=== PATIENT | male | born 1950 | race Caucasian/White ===

== ENCOUNTER 2018-09-15 07:24 | Emergency (ER) | payer MEDICARE ==
[2018-09-15] MEDS ORDERED: Dexamethasone Sodium Phos 4 mg/mL Vial IM STA (08:09)
[2018-09-15] MEDS ORDERED: Dexamethasone Sodium Phos 4 mg/mL Vial ONE (08:13)
--- NOTE | 2018-09-15 08:15 | ED Physician Chart ---
ED Chief Complaint/HPI - Patient Information Date Seen:: 09/15/18 Time Seen:: 08:00 Chief Complaint:: urticaria History of Present Illness:: Yesterday patient developed urticaria in the axilla, buttocks and both thighs. He denies throat swelling or difficulty breathing. Patient has had urticaria intermittently for last 15 years, last episode was about 2 years ago. In the past patient has received injections of Decadron which have made the urticaria subside Allergies:: Allergies Allergy/AdvReac Type Severity Reaction Status Date / Time No Known Allergies Allergy Verified 09/15/18 07:40 Vitals:: Vital Signs - 8 hr 09/15/18 07:41 Temp 98.4 F HR 70 RR 17 BP 130/85 O2 Sat % 97 Historian:: Patient Review:: Nurse's Note Reviewed ED Review of Systems - Review of Systems General/Constitutional: No fever, No chills Skin: Rash Head: No headache Eyes: No loss of vision ENT: No earache Neck: No neck pain, No swelling Cardio Vascular: No chest pain, No palpitations Pulmonary: No SOB GI: No nausea, No vomiting, No diarrhea G/U: No dysuria Musculoskeletal: No bone or joint pain Endocrine: No polyuria, No polydipsia Psychiatric: No prior psych history Hematopoietic: No bruising Allergic/Immuno: Urticaria Neurological: No syncope, No focal symptoms, No weakness ED Past Medical History - Past Medical History Past Medical History: DM Family History: None Social History: Non Smoker, No Alcohol Surgical History: other (left hip replacement; meniscus right knee) Psychiatricy History: None Medication: Reviewed ED Physical Exam - Physical Examination General/Constitutional: Awake, Well-developed, well-nourished, Alert, No distress, GCS 15, Non-toxic appearing, Ambulatory Head: Atraumatic Eyes: Lids, conjuctiva normal, PERRL, EOMI Other Skin comments:: Urticaria both axillae and anterior and posterior both thighs ENMT: External ears, nose nl, Nasal exam nl Other ENMT comments:: Full upper and lower dentures Neck: Nontender, Full ROM w/o pain, No JVD, No nuchal rigidity, No bruit, No mass, No stridor Respiratory: Nl effort/Exclusion, Clear to Auscultation, No Wheeze/Rhonchi/Rales Cardio Vascular: RRR, No murmur, gallop, rubs, NL S1 S2 GI: No tenderness/rebounding/guarding, No organomegaly, No hernia, Normal BS's, Nondistended, No mass/bruits, No McBurney tenderness : No CVA tenderness Extremities: No tenderness or effusion, Full ROM, normal strength in all extremities, No edema, Normal digits & nails Neuro/Psych: Alert/oriented, DTR's symmetric, Normal sensory exam, Normal motor strength, Judgement/insight normal, Mood normal, Normal gait, No focal deficits Misc: Normal back, No paraspinal tenderness ED Septic Shock - . Is Septic Shock (SBP<90, OR Lactate>4 mmol\L) present?: No - <6hrs of presentation: Vital Signs: Vital Signs - 8 hr 09/15/18 07:41 Temp 98.4 F HR 70 RR 17 BP 130/85 O2 Sat % 97 ED Reassessment (Disposition) - Reassessment Reassessment Condition:: Unchanged - Diagnosis Diagnosis:: Urticaria - Aftercare/Follow up Instructions Aftercare/Follow-Up Instructions:: Refer to Discharge Instructions - Patient Disposition Discharge/Transfer:: Home Condition at Disposition:: Stable, Unchanged
== END 2018-09-15 08:45 | disposition home or self-care (01) ==
LOC: ER 07:24
DX: L50.9 Urticaria, unspecified (principal); E11.9 Type 2 diabetes mellitus without complications
CPT/HCPCS: 99283; 96372; J1100; Z7502

== ENCOUNTER 2018-09-18 10:52 | Emergency (ER) | payer MEDICARE ==
--- NOTE | 2018-09-18 11:42 | ED Physician Chart ---
ED Chief Complaint/HPI - Patient Information Date Seen:: 09/18/18 Time Seen:: 11:05 Chief Complaint:: 15 year h/o recurrent rash History of Present Illness:: 15 year h/o recurrent rash Patient uses TIDE detergent and fabric softener with fragrance. He uses DOVE soap. Allergies:: Allergies Allergy/AdvReac Type Severity Reaction Status Date / Time No Known Allergies Allergy Verified 09/18/18 11:04 Vitals:: Vital Signs - 8 hr 09/18/18 11:05 Temp 97.6 F HR 70 RR 18 BP 129/64 O2 Sat % 100 Historian:: Patient Review:: Nurse's Note Reviewed ED Review of Systems - Review of Systems General/Constitutional: No fever, No chills, No weight loss, No weakness, No diaphoresis, No edema, No loss of appetite Skin: No skin lesions, Rash, No bruising Head: No headache, No light-headedness Eyes: No loss of vision, No pain, No diplopia ENT: No earache, No nasal drainage, No sore throat, No tinnitus Neck: No neck pain, No swelling, No thyromegaly, No stiffness, No mass noted Cardio Vascular: No chest pain, No palpitations, No PND, No orthopnea, No edema Pulmonary: No SOB, No cough, No sputum, No wheezing GI: No nausea, No vomiting, No diarrhea, No pain, No melena, No hematochezia, No constipation, No hematemesis G/U: No dysuria, No frequency, No hematuria Musculoskeletal: No bone or joint pain, No back pain, No muscle pain Endocrine: No polyuria, No polydipsia Psychiatric: No prior psych history, No depression, No anxiety, No suicidal ideation Hematopoietic: No bruising, No lymphadenopathy Allergic/Immuno: No urticaria, No angioedema Neurological: No syncope, No focal symptoms, No weakness, No paresthesia, No headache, No seizure, No dizziness, No confusion, No vertigo ED Past Medical History - Past Medical History Obtainable: Yes Past Medical History: Other (15 year h/o recurrent rash) Family Medical History - Family Member Mother History Unknown: Yes Ethnicity: Non- Living Status: ED Physical Exam - Physical Examination General/Constitutional: Awake, Well-developed, well-nourished, Alert, No distress, GCS 15, Non-toxic appearing, Ambulatory Head: Atraumatic Eyes: Lids, conjuctiva normal, PERRL, EOMI Skin: Well hydrated Other Skin comments:: erythematous macular papular rash on BUE and buttocks and back area consistent with TIDE dermatitis. ENMT: Oropharynx nl Other ENMT comments:: patent airway Neck: Nontender, No nuchal rigidity Respiratory: Nl effort/Exclusion, Clear to Auscultation, No Wheeze/Rhonchi/Rales Cardio Vascular: RRR, No murmur, gallop, rubs, NL S1 S2 GI: No tenderness/rebounding/guarding, No organomegaly, No hernia, Normal BS's, Nondistended, No mass/bruits, No McBurney tenderness : No CVA tenderness Extremities: No tenderness or effusion, Full ROM, normal strength in all extremities, No edema, Normal digits & nails Other Extremities comments:: see discussion under skin. Neuro/Psych: Alert/oriented, Normal sensory exam, Normal motor strength, Judgement/insight normal, Mood normal, Normal gait, No focal deficits Other Misc comments:: see discussion re skin. ED Assessment - Assessment General Assessment: tolerated injection well. Some decrease in intensity of the redness of the rash on the back and less raised as well. ED Septic Shock - . Is Septic Shock (SBP<90, OR Lactate>4 mmol\L) present?: No - <6hrs of presentation: Vital Signs: Vital Signs - 8 hr 09/18/18 11:05 Temp 97.6 F HR 70 RR 18 BP 129/64 O2 Sat % 100 ED Reassessment (Disposition) - Reassessment Reassessment Condition:: Improved - Diagnosis Diagnosis:: TIDE contact dermatitis exacerbated by fabric softener. - Aftercare/Follow up Instructions Aftercare/Follow-Up Instructions:: Refer to Discharge Instructions Notes:: STOP TIDE. USE ALL FREE DETERGENT. STOP FABRIC SOFTENER. WASH THROUGH CLOTHES, SHEETS, TOWELS AND PILLOW CASES WITH COLD WATER 2 TIMES TO ELIMINATE ALLERGENS. FOLLOW UP WITH PCP NEEDED. Medication Prescribed:: Zyrtec 10 mg po qhs # 10 Medrol dose pack (4 mg) Ranitidine 150 mg po bid # 20 Hydrocortisone cream 2.5 % apply bid prn Benadryl 25 mg po every 6 hours as needed. # 40 - Patient Disposition Discharge/Transfer:: Home Condition at Disposition:: Stable, Improved
== END 2018-09-18 11:40 | disposition home or self-care (01) ==
LOC: ER 10:52
DX: L24.0 Irritant contact dermatitis due to detergents (principal)
CPT/HCPCS: 99284; 96374; 96375; J3490; J2930; Z7502

== ENCOUNTER 2018-09-27 14:03 | Emergency (ER) | payer MEDICARE ==
--- NOTE | 2018-09-27 16:20 | ED Physician Chart ---
ED Chief Complaint/HPI - Patient Information Date Seen:: 09/27/18 Time Seen:: 15:00 Chief Complaint:: Rash History of Present Illness:: onset x 3 days of itching rash; pt denies trauma, LOC, ALOC, AMS, H/As, S/T, E/ As, neck pain, C/P, cough, SOB, Abd. pain, A/N/V/D/C, pain, fever, chills, or urinary s/s; pt's last tetanus shot: < 5 years; UTD Allergies:: Allergies Allergy/AdvReac Type Severity Reaction Status Date / Time No Known Allergies Allergy Verified 09/18/18 11:04 Vitals:: Vital Signs - 8 hr 09/27/18 09/27/18 15:06 15:13 Temp 98.2 F 98.2 F HR 93 93 RR 17 100 BP 121/76 121/76 O2 Sat % 95 Historian:: Patient Review:: Nurse's Note Reviewed, Old Chart Reviewed ED Review of Systems - Review of Systems General/Constitutional: No fever, No chills, No weight loss, No weakness, No diaphoresis, No edema, No loss of appetite Skin: Skin lesions, Rash, No bruising Head: No headache, No light-headedness Eyes: No loss of vision, No pain, No diplopia ENT: No earache, No nasal drainage, No sore throat, No tinnitus Neck: No neck pain, No swelling, No thyromegaly, No stiffness, No mass noted Cardio Vascular: No chest pain, No palpitations, No PND, No orthopnea, No edema Pulmonary: No SOB, No cough, No sputum, No wheezing GI: No nausea, No vomiting, No diarrhea, No pain, No melena, No hematochezia, No constipation, No hematemesis G/U: No dysuria, No frequency, No hematuria, No nacturia Musculoskeletal: No bone or joint pain, No back pain, No muscle pain Endocrine: No polyuria, No polydipsia Psychiatric: No prior psych history, No depression, No anxiety, No suicidal ideation, No homicidal ideation, No auditory hallucination, No visual hallucination Hematopoietic: No bruising, No lymphadenopathy Allergic/Immuno: No urticaria, No angioedema Neurological: No syncope, No focal symptoms, No weakness, No paresthesia, No headache, No seizure, No dizziness, No confusion, No vertigo ED Past Medical History - Past Medical History Obtainable: Yes Past Medical History: HTN, Other (Urticaria) Family History: HTN Social History: Non Smoker, No Alcohol, No Drug Use, Single Surgical History: None Psychiatricy History: None Medication: Reviewed Family Medical History - Family Member Mother History Unknown: Yes Ethnicity: Non- Living Status: ED Physical Exam - Physical Examination General/Constitutional: Awake, Well-developed, well-nourished, Alert, No distress, GCS 15, Non-toxic appearing, Ambulatory Head: Atraumatic Eyes: Lids, conjuctiva normal, PERRL, EOMI Skin: Nl inspection, No skin lesions, No ecchymosis, Well hydrated, No lymphadenopathy Other Skin comments:: + Urticaria lesions especially at chest and Abd. regions; no cellulitis; no FBs ; good motor and sensory functions; good NV functions ENMT: External ears, nose nl, TM canals nl, Nasal exam nl, Lips, teeth, gums nl , Oropharynx nl, Tonsils nl Neck: Nontender, Full ROM w/o pain, No JVD, No nuchal rigidity, No bruit, No mass, No stridor Other Neck comments:: supple; no meningeal signs; no cervical tenderness; no bruits Respiratory: Nl effort/Exclusion, Clear to Auscultation, No Wheeze/Rhonchi/Rales Cardio Vascular: RRR, No murmur, gallop, rubs, NL S1 S2, Carotid/Femoral/Distal pulses equal bilaterally GI: No tenderness/rebounding/guarding, No organomegaly, No hernia, Normal BS's, Nondistended, No mass/bruits, No McBurney tenderness, Rectum exam nl Other GI comments:: no pulsatile masses; good BS : No CVA tenderness Extremities: No tenderness or effusion, Full ROM, normal strength in all extremities, No edema, Normal digits & nails Neuro/Psych: Alert/oriented, DTR's symmetric, Normal sensory exam, Normal motor strength, Judgement/insight normal, Mood normal, Normal gait, No focal deficits Other Neuro/Psych comments:: no focal signs Misc: Normal back, No paraspinal tenderness ED Septic Shock - . Is Septic Shock (SBP<90, OR Lactate>4 mmol\L) present?: No - <6hrs of presentation: Vital Signs: Vital Signs - 8 hr 09/27/18 09/27/18 15:06 15:13 Temp 98.2 F 98.2 F HR 93 93 RR 17 100 BP 121/76 121/76 O2 Sat % 95 ED Reassessment (Disposition) - Reassessment Reassessment:: pt is asymptomatic upon discharge Reassessment Condition:: Improved - Diagnosis Diagnosis:: Dx: Rash; Itching Rash; Urticaria; Allergic Reaction - Aftercare/Follow up Instructions Aftercare/Follow-Up Instructions:: Counseled pt regarding lab results/diagnosis & need follow up, Refer to Discharge Instructions, Counseled pt & family regarding lab results/diagnosis & need follow up Medication Prescribed:: Rx: Benadryl 25mg po qid prn itching rash; Medrol Dose Pack; take all medications as prescribed; Skin Care Instructions; Rash Care Instructions - Patient Disposition Discharge/Transfer:: Home Condition at Disposition:: Stable, Improved (RTER prn if existing s/s reoccur and/or get worse and/or any other new s/s occur; ACIs given for all above Dx; Skin/Rash Care Instructions; Refer to Vamp Creaser/Spot Remover/Geotechnical Operating Engineer CODY; F/ U with PMD in one day or prn; RTER prn if concerned)
== END 2018-09-27 15:30 | disposition home or self-care (01) ==
LOC: ER 14:03
DX: T78.40XA Allergy, unspecified, initial encounter (principal); L50.0 Allergic urticaria; I10 Essential (primary) hypertension; X58.XXXA Exposure to other specified factors, initial encounter
CPT/HCPCS: J1030; Z7502

== ENCOUNTER 2018-09-30 13:05 | Emergency (ER) | payer MEDICARE ==
--- NOTE | 2018-09-30 13:53 | ED Physician Chart ---
ED Chief Complaint/HPI - Patient Information Date Seen:: 09/30/18 Time Seen:: 13:05 Chief Complaint:: rash History of Present Illness:: rash has been coming and going for years. none of his doctors know what causes it. patient has eliminated TIDE and all fragrance. Allergies:: Allergies Allergy/AdvReac Type Severity Reaction Status Date / Time No Known Allergies Allergy Verified 09/30/18 13:14 Vitals:: Vital Signs - 8 hr 09/30/18 13:05 Temp 97.7 F HR 91 RR 16 BP 131/70 O2 Sat % 98 Historian:: Patient Review:: Nurse's Note Reviewed ED Review of Systems - Review of Systems General/Constitutional: No fever, No chills, No weight loss, No weakness, No diaphoresis, No edema, No loss of appetite Skin: No skin lesions, Rash, No bruising Head: No headache, No light-headedness Eyes: No loss of vision, No pain, No diplopia ENT: No earache, No nasal drainage, No sore throat, No tinnitus Neck: No neck pain, No swelling, No thyromegaly, No stiffness, No mass noted Cardio Vascular: No chest pain, No palpitations, No PND, No orthopnea, No edema Pulmonary: No SOB, No cough, No sputum, No wheezing GI: No nausea, No vomiting, No diarrhea, No pain, No melena, No hematochezia, No constipation, No hematemesis G/U: No dysuria, No frequency, No hematuria Musculoskeletal: No bone or joint pain, No back pain, No muscle pain Endocrine: No polyuria, No polydipsia Psychiatric: No prior psych history, No depression, No anxiety, No suicidal ideation Hematopoietic: No bruising, No lymphadenopathy Allergic/Immuno: No urticaria, No angioedema Neurological: No syncope, No focal symptoms, No weakness, No paresthesia, No headache, No seizure, No dizziness, No confusion, No vertigo ED Past Medical History - Past Medical History Obtainable: Yes Past Medical History: Other (recurrent rash of unknown etiology; allergy testing has been negative) Family Medical History - Family Member Mother History Unknown: Yes Ethnicity: Non- Living Status: ED Physical Exam - Physical Examination General/Constitutional: Awake, Well-developed, well-nourished, Alert, No distress, GCS 15, Non-toxic appearing, Ambulatory Head: Atraumatic Eyes: Lids, conjuctiva normal, PERRL, EOMI Other Skin comments:: maculopapular rash on back on around neck area. ENMT: External ears, nose nl Neck: Nontender, Full ROM w/o pain, No JVD, No nuchal rigidity, No bruit, No mass, No stridor Respiratory: Nl effort/Exclusion, Clear to Auscultation, No Wheeze/Rhonchi/Rales Cardio Vascular: RRR, No murmur, gallop, rubs, NL S1 S2 GI: No tenderness/rebounding/guarding, No organomegaly, No hernia, Normal BS's, Nondistended, No mass/bruits, No McBurney tenderness : No CVA tenderness Extremities: No tenderness or effusion, Full ROM, normal strength in all extremities, No edema, Normal digits & nails Neuro/Psych: Alert/oriented, Normal sensory exam, Normal motor strength, Judgement/insight normal, Mood normal, Normal gait, No focal deficits Other Misc comments:: maculopapular rash on back on around neck area. ED Assessment - Assessment General Assessment: feels less itchy after receiving the treatment here. his daughter will drive him home. ED Septic Shock - . Is Septic Shock (SBP<90, OR Lactate>4 mmol\L) present?: No - <6hrs of presentation: Vital Signs: Vital Signs - 8 hr 09/30/18 13:05 Temp 97.7 F HR 91 RR 16 BP 131/70 O2 Sat % 98 ED Reassessment (Disposition) - Reassessment Reassessment Condition:: Improved - Diagnosis Diagnosis:: Contact dermatitis - Aftercare/Follow up Instructions Aftercare/Follow-Up Instructions:: Refer to Discharge Instructions Notes:: follow up with air brakes inspector no seeds and nuts no dairy products no gluten Medication Prescribed:: Diflucan 150 mg 1 po q day # 3 Lotrisone cream apply bid # 1 with 1 refill Benadryl 25 mg 1 po q 6 hours prn # 40 Medrol dose pack 4 mg take as directed Ranitidine 150 m po bid # 20 Zyrtec 10 m po q day # 10 - Patient Disposition Discharge/Transfer:: Home Condition at Disposition:: Stable, Improved
[2018-09-30 14:32] VITALS: BP 120/76
== END 2018-09-30 14:47 | disposition home or self-care (01) ==
LOC: ER 13:05
DX: L25.9 Unspecified contact dermatitis, unspecified cause (principal)
CPT/HCPCS: 99283; 96374; 96375; J2930; J1200; Z7502

== ENCOUNTER 2018-11-20 15:00 | Emergency (ER) | payer MEDICARE ==
--- NOTE | 2018-11-20 16:09 | ED Physician Chart ---
ED Chief Complaint/HPI - Patient Information Date Seen:: 11/20/18 Time Seen:: 15:22 Chief Complaint:: chronic rash, wants steroid shot History of Present Illness:: chronic rash, wants steroid shot has a new dog at home. Allergies:: Allergies Allergy/AdvReac Type Severity Reaction Status Date / Time No Known Allergies Allergy Verified 11/20/18 15:09 Vitals:: Vital Signs - 8 hr 11/20/18 11/20/18 15:22 15:43 Temp 98.1 F 98.1 F HR 83 83 RR 16 18 BP 125/70 125/70 O2 Sat % 98 98 Historian:: Patient Review:: Nurse's Note Reviewed ED Review of Systems - Review of Systems General/Constitutional: No fever, No chills, No weight loss, No weakness, No diaphoresis, No edema, No loss of appetite Skin: Rash, No bruising Head: No headache, No light-headedness Eyes: No loss of vision, No pain, No diplopia ENT: No earache, No nasal drainage, No sore throat, No tinnitus Neck: No neck pain, No swelling, No thyromegaly, No stiffness, No mass noted Cardio Vascular: No chest pain, No palpitations, No PND, No orthopnea, No edema Pulmonary: No SOB, No cough, No sputum, No wheezing GI: No nausea, No vomiting, No diarrhea, No pain, No melena, No hematochezia, No constipation, No hematemesis G/U: No dysuria, No frequency, No hematuria Musculoskeletal: No bone or joint pain, No back pain, No muscle pain Endocrine: No polyuria, No polydipsia Psychiatric: No prior psych history, No depression, No anxiety, No suicidal ideation Hematopoietic: No bruising, No lymphadenopathy Allergic/Immuno: No urticaria, No angioedema Neurological: No syncope, No focal symptoms, No weakness, No paresthesia, No headache, No seizure, No dizziness, No confusion, No vertigo ED Past Medical History - Past Medical History Obtainable: Yes Past Medical History: Other (chronic rash, unknown cause (has had it for years)) Family Medical History - Family Member Mother History Unknown: Yes Ethnicity: Non- Living Status: ED Physical Exam - Physical Examination General/Constitutional: Awake, Well-developed, well-nourished, Alert, No distress, GCS 15, Non-toxic appearing, Ambulatory Head: Atraumatic Eyes: Lids, conjuctiva normal, PERRL, EOMI Skin: No ecchymosis, Well hydrated, No lymphadenopathy Other Skin comments:: Upper back rash appears to be ringworm (he has a new dog) other areas of rash appear like his classic macular papular rash. ENMT: External ears, nose nl Neck: Nontender, Full ROM w/o pain, No JVD, No nuchal rigidity, No bruit, No mass, No stridor Respiratory: Nl effort/Exclusion, Clear to Auscultation, No Wheeze/Rhonchi/Rales Cardio Vascular: RRR, No murmur, gallop, rubs, NL S1 S2 GI: No tenderness/rebounding/guarding, No organomegaly, No hernia, Normal BS's, Nondistended, No mass/bruits, No McBurney tenderness : No CVA tenderness Extremities: No tenderness or effusion, Full ROM, normal strength in all extremities, No edema, Normal digits & nails Neuro/Psych: Alert/oriented, DTR's symmetric, Normal sensory exam, Normal motor strength, Judgement/insight normal, Mood normal, Normal gait, No focal deficits Misc: Normal back, No paraspinal tenderness ED Assessment - Assessment General Assessment: feels better after steroid injection. wants to go home. ED Septic Shock - . Is Septic Shock (SBP<90, OR Lactate>4 mmol\L) present?: No - <6hrs of presentation: Vital Signs: Vital Signs - 8 hr 11/20/18 11/20/18 15:22 15:43 Temp 98.1 F 98.1 F HR 83 83 RR 16 18 BP 125/70 125/70 O2 Sat % 98 98 ED Reassessment (Disposition) - Reassessment Reassessment Condition:: Improved - Diagnosis Diagnosis:: Ringworm Contact dermatitis - Aftercare/Follow up Instructions Aftercare/Follow-Up Instructions:: Refer to Discharge Instructions Notes:: follow up with primary Medication Prescribed:: Diflucan 150 mg po q day #3 Lotrisone cream Prednisone 10 m, 3, 2, 1(monitor blood sugars at home) - Patient Disposition Discharge/Transfer:: Home Condition at Disposition:: Stable, Improved
== END 2018-11-20 16:00 | disposition home or self-care (01) ==
LOC: ER 15:00
DX: B35.9 Dermatophytosis, unspecified (principal); L25.9 Unspecified contact dermatitis, unspecified cause
CPT/HCPCS: 99283; 96372; J2930; Z7502

== ENCOUNTER 2019-02-06 19:53 | Emergency (ER) | payer MEDICARE, OTHER ==
--- NOTE | 2019-02-06 20:46 | ED Physician Chart ---
ED Chief Complaint/HPI - Patient Information Date Seen:: 02/06/19 Time Seen:: 20:41 Chief Complaint:: rash History of Present Illness:: 68 yr old male with rash elbows comes and goes and usually get steroid shot and then rash and itching go away and then he goes home Allergies:: Allergies Allergy/AdvReac Type Severity Reaction Status Date / Time No Known Allergies Allergy Verified 02/06/19 20:16 Vitals:: Vital Signs - 8 hr 02/06/19 20:10 Temp 98.9 F HR 81 RR 18 BP 150/64 O2 Sat % 100 ED Review of Systems - Review of Systems General/Constitutional: No fever, No chills, No weight loss, No weakness, No diaphoresis, No edema, No loss of appetite Skin: Rash Head: No headache, No light-headedness Eyes: No loss of vision, No pain, No diplopia ENT: No earache, No nasal drainage, No sore throat, No tinnitus Neck: No neck pain, No swelling, No thyromegaly, No stiffness, No mass noted Cardio Vascular: No chest pain, No palpitations, No PND, No orthopnea, No edema Pulmonary: No SOB, No cough, No sputum, No wheezing GI: No nausea, No vomiting, No diarrhea, No pain, No melena, No hematochezia, No constipation, No hematemesis G/U: No dysuria, No frequency, No hematuria Musculoskeletal: No bone or joint pain, No back pain, No muscle pain Endocrine: No polyuria, No polydipsia Psychiatric: No prior psych history, No depression, No anxiety, No suicidal ideation Hematopoietic: No bruising, No lymphadenopathy Allergic/Immuno: No urticaria, No angioedema Neurological: No syncope, No focal symptoms, No weakness, No paresthesia, No headache, No seizure, No dizziness, No confusion, No vertigo ED Past Medical History - Past Medical History Past Medical History: Other (hay fever ) Family Medical History - Family Member Mother History Unknown: Yes Ethnicity: Non- Living Status: ED Physical Exam - Physical Examination General/Constitutional: Awake, Well-developed, well-nourished, Alert, No distress, GCS 15, Non-toxic appearing, Ambulatory Head: Atraumatic Eyes: Lids, conjuctiva normal, PERRL, EOMI Skin: No ecchymosis, Well hydrated, No lymphadenopathy Other Skin comments:: rash elbows ENMT: External ears, nose nl, Nasal exam nl, Lips, teeth, gums nl Neck: Nontender, Full ROM w/o pain, No JVD, No nuchal rigidity, No bruit, No mass, No stridor Respiratory: Nl effort/Exclusion, Clear to Auscultation, No Wheeze/Rhonchi/Rales Cardio Vascular: RRR, No murmur, gallop, rubs, NL S1 S2 GI: No tenderness/rebounding/guarding, No organomegaly, No hernia, Normal BS's, Nondistended, No mass/bruits, No McBurney tenderness : No CVA tenderness Extremities: No tenderness or effusion, Full ROM, normal strength in all extremities, No edema, Normal digits & nails Neuro/Psych: Alert/oriented, DTR's symmetric, Normal sensory exam, Normal motor strength, Judgement/insight normal, Mood normal, Normal gait, No focal deficits Misc: Normal back, No paraspinal tenderness ED Assessment - Assessment General Assessment: rash dermatitis ED Septic Shock - . Is Septic Shock (SBP<90, OR Lactate>4 mmol\L) present?: No - <6hrs of presentation: Vital Signs: Vital Signs - 8 hr 02/06/19 20:10 Temp 98.9 F HR 81 RR 18 BP 150/64 O2 Sat % 100 ED Reassessment (Disposition) - Reassessment Reassessment:: rash dermatitis Reassessment Condition:: Improved - Diagnosis Diagnosis:: same - Aftercare/Follow up Instructions Aftercare/Follow-Up Instructions:: Counseled pt regarding lab results/diagnosis & need follow up - Patient Disposition Discharge/Transfer:: Home Condition at Disposition:: Stable
== END 2019-02-06 21:15 | disposition home or self-care (01) ==
LOC: ER 19:53
DX: L30.9 Dermatitis, unspecified (principal); R21 Rash and other nonspecific skin eruption
CPT/HCPCS: 99283; 96372; J2930; Z7502

== ENCOUNTER 2019-04-27 14:30 | Emergency (ER) | payer MEDICARE, OTHER ==
[2019-04-27] MEDS ORDERED: Dexamethasone Sodium Phos 4 mg/mL Vial IM STA (14:59)
[2019-04-27] MEDS ORDERED: Dexamethasone Sodium Phos 4 mg/mL Vial ONE (15:04)
--- NOTE | 2019-04-27 15:05 | ED Physician Chart ---
ED Chief Complaint/HPI - Patient Information Date Seen:: 04/27/19 Time Seen:: 14:55 Chief Complaint:: pruritic rash History of Present Illness:: Patient developed diffuse pruritic rash last night; unable to sleep because of the itching. No throat swelling or difficulty breathing. Patient has a history of chronic urticaria. Patient states the urticaria always gets better after steroid injection. Allergies:: Allergies Allergy/AdvReac Type Severity Reaction Status Date / Time No Known Allergies Allergy Verified 04/27/19 14:42 Vitals:: Vital Signs - 8 hr 04/27/19 14:44 HR 104 RR 18 BP 129/65 O2 Sat % 97 Historian:: Patient ED Review of Systems - Review of Systems General/Constitutional: No fever, No chills Skin: Rash, Other (pruritic rash) Head: No headache Eyes: No loss of vision ENT: No earache Neck: No neck pain, No swelling Cardio Vascular: No chest pain, No palpitations Pulmonary: No SOB GI: No nausea, No vomiting, No diarrhea G/U: No dysuria Musculoskeletal: No bone or joint pain Endocrine: No polyuria Psychiatric: No prior psych history Hematopoietic: No bruising, No lymphadenopathy Allergic/Immuno: No urticaria Neurological: No syncope ED Past Medical History - Past Medical History Past Medical History: DM, Other (chronic urticaria) Family History: None Social History: Non Smoker, No Alcohol Surgical History: other (left hip replacement surgery) Psychiatricy History: None Medication: Reviewed Family Medical History - Family Member Mother History Unknown: Yes Ethnicity: Non- Living Status: ED Physical Exam - Physical Examination General/Constitutional: Awake Head: Atraumatic Eyes: Lids, conjuctiva normal, PERRL Other Skin comments:: Urticaria noted on upper extremities ENMT: External ears, nose nl, Nasal exam nl Other ENMT comments:: upper and lower dentures Neck: No nuchal rigidity Respiratory: Nl effort/Exclusion, Clear to Auscultation, No Wheeze/Rhonchi/Rales Cardio Vascular: RRR, No murmur, gallop, rubs GI: No tenderness/rebounding/guarding : No CVA tenderness Extremities: Normal digits & nails Neuro/Psych: No focal deficits Misc: Normal back ED Assessment - Assessment General Assessment: will give patient decadron 8 mg intramuscularly. ED Septic Shock - . Is Septic Shock (SBP<90, OR Lactate>4 mmol\L) present?: No - <6hrs of presentation: Vital Signs: Vital Signs - 8 hr 04/27/19 14:44 HR 104 RR 18 BP 129/65 O2 Sat % 97 ED Reassessment (Disposition) - Reassessment Reassessment Condition:: Unchanged - Diagnosis Diagnosis:: acute urticarea; history of diabetes; history of chronic urticaria - Aftercare/Follow up Instructions Aftercare/Follow-Up Instructions:: Refer to Discharge Instructions - Patient Disposition Discharge/Transfer:: Home Condition at Disposition:: Stable, Unchanged
== END 2019-04-27 15:15 | disposition home or self-care (01) ==
LOC: ER 14:30
DX: L50.9 Urticaria, unspecified (principal); E11.9 Type 2 diabetes mellitus without complications
CPT/HCPCS: 99283; 96372; J1100; Z7502

== ENCOUNTER 2019-04-30 17:42 | Emergency (ER) | payer MEDICARE, OTHER ==
--- NOTE | 2019-04-30 18:21 | ED Physician Chart ---
ED Chief Complaint/HPI - Patient Information Date Seen:: 04/30/19 Time Seen:: 18:16 Chief Complaint:: hives History of Present Illness:: 68 yr old male with dm htn on multiple meds with allergic rxn off on for 10 yrs with hives arge hives throughout no swelling tongue no resp distress able to verbalize well Allergies:: Allergies Allergy/AdvReac Type Severity Reaction Status Date / Time No Known Allergies Allergy Verified 04/27/19 14:42 Vitals:: Vital Signs - 8 hr 04/30/19 18:11 Temp 98.3 F HR 107 RR 17 BP 162/81 O2 Sat % 94 ED Review of Systems - Review of Systems General/Constitutional: No fever, No chills, No weight loss, No weakness, No diaphoresis, No edema, No loss of appetite Skin: Skin lesions, Rash, No bruising, Other (diffuse large hives) Head: No headache, No light-headedness Eyes: No loss of vision, No pain, No diplopia ENT: No earache, No nasal drainage, No sore throat, No tinnitus Neck: No neck pain, No swelling, No thyromegaly, No stiffness, No mass noted Cardio Vascular: No chest pain, No palpitations, No PND, No orthopnea, No edema Pulmonary: No SOB, No cough, No sputum, No wheezing GI: No nausea, No vomiting, No diarrhea, No pain, No melena, No hematochezia, No constipation, No hematemesis G/U: No dysuria, No frequency, No hematuria Musculoskeletal: No bone or joint pain, No back pain, No muscle pain Endocrine: No polyuria, No polydipsia Psychiatric: No prior psych history, No depression, No anxiety, No suicidal ideation Hematopoietic: No bruising, No lymphadenopathy Allergic/Immuno: No urticaria, No angioedema Neurological: No syncope, No focal symptoms, No weakness, No paresthesia, No headache, No seizure, No dizziness, No confusion, No vertigo ED Past Medical History - Past Medical History Past Medical History: HTN, DM, CAD, Asthma/COPD, Dyslipidemia Family Medical History - Family Member Mother History Unknown: Yes Ethnicity: Non- Living Status: ED Physical Exam - Physical Examination General/Constitutional: Awake, Well-developed, well-nourished, Alert, No distress, GCS 15, Non-toxic appearing, Ambulatory Head: Atraumatic Eyes: Lids, conjuctiva normal, PERRL, EOMI Skin: Well hydrated, No lymphadenopathy Other Skin comments:: skin with raised hives throughout ENMT: External ears, nose nl, Nasal exam nl, Lips, teeth, gums nl Neck: Nontender, Full ROM w/o pain, No JVD, No nuchal rigidity, No bruit, No mass, No stridor Respiratory: Nl effort/Exclusion, Clear to Auscultation, No Wheeze/Rhonchi/Rales Cardio Vascular: RRR, No murmur, gallop, rubs, NL S1 S2 GI: No tenderness/rebounding/guarding, No organomegaly, No hernia, Normal BS's, Nondistended, No mass/bruits, No McBurney tenderness : No CVA tenderness Extremities: No tenderness or effusion, Full ROM, normal strength in all extremities, No edema, Normal digits & nails Neuro/Psych: Alert/oriented, DTR's symmetric, Normal sensory exam, Normal motor strength, Judgement/insight normal, Mood normal, Normal gait, No focal deficits Misc: Normal back, No paraspinal tenderness ED Assessment - Assessment General Assessment: allergic rxn ED Septic Shock - . Is Septic Shock (SBP<90, OR Lactate>4 mmol\L) present?: No - <6hrs of presentation: Vital Signs: Vital Signs - 8 hr 04/30/19 18:11 Temp 98.3 F HR 107 RR 17 BP 162/81 O2 Sat % 94 ED Reassessment (Disposition) - Reassessment Reassessment:: allergic rxn with hives - Diagnosis Diagnosis:: as above
== END 2019-04-30 18:33 | disposition home or self-care (01) ==
LOC: ER 17:42
DX: T78.40XA Allergy, unspecified, initial encounter (principal); L50.9 Urticaria, unspecified; I10 Essential (primary) hypertension; I25.10 Atherosclerotic heart disease of native coronary artery without angina pectoris; E11.9 Type 2 diabetes mellitus without complications; J44.9 Chronic obstructive pulmonary disease, unspecified; E78.5 Hyperlipidemia, unspecified; X58.XXXA Exposure to other specified factors, initial encounter
CPT/HCPCS: 99283; 96372; J2930; J1200; Z7502